=== PATIENT | female | born 1955 | race Caucasian/White ===

== ENCOUNTER 2019-07-21 11:59 | Day surgery (SDC) | payer MEDICAID ==
[2019-07-21] MEDS ORDERED: ALBUMIN HUMAN 25% 50 ML in EMPTY BAG 1 BAG IVPB SCH (12:45)
[2019-07-21 12:51] LABS: Mean Platelet Volume 6.5; Platelet Count 274 k/uL (150-450)
[2019-07-21 12:53] VITALS: RESP 16; TEMP 98.1
[2019-07-21 12:58] LABS: African American GFR (CKD) >90 (>60 ml/min/1.73 sqM); Non-African American GFR(CKD) >90 (>60 ml/min/1.73 sqM)
[2019-07-21 13:07] LABS: Prothrombin Time 10.6 sec (9.0-12.0)
[2019-07-21 14:33] VITALS: BP 163/79; PULSE 88
--- NOTE | 2019-07-21 15:09 | US ---
Therapeutic paracentesis. DATE OF EXAM: 07/21/2019 CLINICAL HISTORY: Ascites The procedure was discussed with the patient. The risks, complications, benefits, and alternatives we re discussed and any questions were answered. Informed consent was obtained. The patient was placed s upine on the ultrasound table and prepped and draped in the usual sterile fashion. All elements of maximal barrier technique were utilized. Under ultrasound guidance, access into the right lower quadrant was obtained, via the paracentesis catheter system and direct ultrasound guidanc e. Approximately 5.5 liters of straw-colored fluid was removed. The patient was stable throughout the pr ocedure and remained stable upon discharge from Department of Radiology. IMPRESSION: Successful therapeutic paracentesis under ultrasound guidance.
== END 2019-07-21 14:20 | disposition home or self-care (01) ==
LOC: RADPROMAIN 11:59
PROVIDERS: ATTEND Internal Medicine Gastroenterology
DX: R18.8 Other ascites (principal)
CPT/HCPCS: 36415; 49083; 82565; 85049; 85610

== ENCOUNTER 2020-11-01 12:27 | Day surgery (SDC) | payer MEDICAID, OTHER ==
[2020-11-01 13:45] LABS: Mean Platelet Volume 7.7; Platelet Count 308 k/uL (150-450)
[2020-11-01 13:49] LABS: African American GFR (CKD) >90 (>60 ml/min/1.73 sqM); Non-African American GFR(CKD) >90 (>60 ml/min/1.73 sqM)
[2020-11-01 13:52] LABS: INR 0.9 (<1.2)
[2020-11-01] MEDS: ALBUMIN HUMAN 25% 50 ML in EMPTY BAG 1 BAG IVPB SCH ×4 (14:15→15:11)
[2020-11-01 14:21] VITALS: RESP 18; TEMP 97.6
[2020-11-01 16:57] VITALS: BP 138/72; PULSE 82
--- NOTE | 2020-11-02 09:47 | US ---
Ultrasound-guided paracentesis. DATE OF EXAM: 11/01/2020 CLINICAL HISTORY: Ascites The procedure was discussed with the patient. The risks, complications, benefits, and alternatives we re discussed and any questions were answered. Informed consent was obtained. The patient was placed s upine on the ultrasound table and prepped and draped in the usual sterile fashion. All elements of maximal barrier technique were utilized. Under ultrasound guidance, access into the right lower quadrant was obtained, via the paracentesis catheter system and direct ultrasound guidanc e. Approximately 8.5 liters of straw-colored fluid was removed. The patient was stable throughout the pr ocedure and remained stable upon discharge from Department of Radiology. IMPRESSION: Successful paracentesis under ultrasound guidance.
== END 2020-11-01 15:55 | disposition home or self-care (01) ==
LOC: RADPROMAIN 12:27
PROVIDERS: ATTEND Physician Assistant
DX: K70.31 Alcoholic cirrhosis of liver with ascites (principal)
CPT/HCPCS: 82565; 85049; 85610; 36415; 49083; P9047